=== PATIENT | female | born 1990 | race Caucasian/White ===

== ENCOUNTER 2017-12-12 15:52 | Emergency (ER) | payer SELFPAY ==
[2017-12-12] MEDS ORDERED: Ibuprofen 200 MG TAB ONE (17:09)
--- NOTE | 2017-12-12 17:24 | RAD ---
PA AND LATERAL CHEST X-RAY: 12/12/17 HISTORY: Cough and congestion. FINDINGS: Patchy interstitial and parenchymal changes are present in the left lower lobe suggesting pneumonia. The right lung is clear. Cardiac silhouette and pulmonary vasculature are within normal limits. [place] structures are intact. IMPRESSION: Left lower lobe pneumonia. Followup to complete resolution is recommended. POS: [facility]
== END 2017-12-12 17:59 | disposition home or self-care (01) ==
LOC: ERS 15:52
DX: J18.9 Pneumonia, unspecified organism (principal); F17.210 Nicotine dependence, cigarettes, uncomplicated
CPT/HCPCS: 71046; 94640; J7620

== ENCOUNTER 2019-05-05 13:38 | Outpatient (CLI) | payer OTHER ==
--- NOTE | 2019-05-05 14:45 | ULT ---
PELVIC ULTRASOUND: INDICATIONS: Infertility. TECHNIQUE: Transabdominal ultrasound of the pelvis performed. FINDINGS: The uterus has a normal sonographic appearance. Uterine measurements are recorded at 6.2 x 5.5 x 3.5 cm. The endometrium is upper normal, measuring approximately 1.0 cm. Both ovaries are identified and appear unremarkable. Normal appearing follicles are seen. Color Doppl er and spectral analysis demonstrate normal and symmetric blood flow to both ovaries. No free fluid i s seen. IMPRESSION: The endometrial stripe is upper normal. Pelvic ultrasound is otherwise unremarkable. POS: OFF
== END 2019-05-05 13:39 | disposition home or self-care (01) ==
LOC: BICULT 13:38
PROVIDERS: ATTEND Obstetrics & Gynecology
DX: Z31.41 Encounter for fertility testing (principal); Z31.69 Encounter for other general counseling and advice on procreation
CPT/HCPCS: 76856; 93976

== ENCOUNTER 2019-05-07 08:55 | Outpatient (CLI) | payer OTHER ==
[2019-05-07] MEDS ORDERED: Iopamidol 300 61% 30 ML VIAL ONE (13:01)
--- NOTE | 2019-05-07 13:38 | RAD ---
Hysterosalpingogram HISTORY: Infertility. FINDINGS: After explaining the procedure and answering all questions, the uterine cervix was carefull y exposed and prepped. Careful technique used to place an HSG catheter into the endometrial cavity. Balloon inflated to hold position. [employer] images show phlebolith within the right pelvis. Hemostasis clip over the right lower quadrant. Approximately 10 cc iodinated contrast was carefully instilled into the endometrial cavity. Normal ca pacity and contour. Immediate fill of each fallopian tube and spill bilaterally. Excess contrast was aspirated and catheter removed. Patient tolerated the procedure well and was dismissed in good co ndition. Fluoroscopy time 0.4 minutes. IMPRESSION: Normal HSG. Patent bilateral fallopian tubes.
== END 2019-05-07 08:56 | disposition home or self-care (01) ==
LOC: RAD 08:55
PROVIDERS: ATTEND Student in an Organized Health Care Education/Training Program
DX: Z31.41 Encounter for fertility testing (principal); Z31.69 Encounter for other general counseling and advice on procreation
CPT/HCPCS: 58340; 74740; Q9967

== ENCOUNTER 2022-01-21 18:18 | Emergency (ER) | payer SELFPAY ==
[2022-01-21 21:11] LABS: SARS-CoV-2 NAA Rapid Test Not Detected (NotDetected)
[2022-01-21] MEDS ORDERED: Oxymetazoline HCl 0.05% (30 ML BOT) ONE (21:55)
== END 2022-01-21 21:57 | disposition home or self-care (01) ==
LOC: ERS 18:18
DX: B34.9 Viral infection, unspecified (principal); F17.210 Nicotine dependence, cigarettes, uncomplicated; Z20.822 Contact with and (suspected) exposure to COVID-19
CPT/HCPCS: 71045; J7620

== ENCOUNTER 2023-06-03 06:50 | Emergency (ER) | payer SELFPAY | END 2023-06-03 08:09 | disposition home or self-care (01) | LOC: ERS 06:50 | DX: J06.9 Acute upper respiratory infection, unspecified (principal); F17.210 Nicotine dependence, cigarettes, uncomplicated | CPT/HCPCS: 99283 ==

== ENCOUNTER 2024-04-28 23:06 | Emergency (ER) | payer SELFPAY ==
[2024-04-28] MEDS ORDERED: Ondansetron ODT 4 MG TAB ONE (23:51)
[2024-04-28] MEDS ORDERED: Ketorolac Tromethamine 30 MG (1 mL) VIAL ONE (23:51)
[2024-04-29 00:01] LABS: Bacteria/HPF None Seen HPF (None Seen); Bilirubin Negative (Negative); Blood, Urine Negative (Negative); CAUTI Indications for Culture Alt mental st,lethar; Clarity Clear (Clear); Glucose, Urine (Dipstick) Normal (Negative); Ketone, Urine Trace mg/dL (Negative); Leukocyte Negative Leu/uL (Negative); Nitrite Negative (Negative); Protein, Urine (Dipstick) 10 mg/dL (Neg-Trace); RBC/HPF 0-3 HPF (0-3); Specific Gravity, Urine 1.026 (1.002-1.036); Squamous Epithelial 0-3 HPF (0-3); Urobilinogen Normal mg/dL (Less than 2); WBC/HPF 0-3 HPF (0-3)
[2024-04-29 00:10] LABS: Pregnancy Test - Urine (BHCG) Negative (Negative); Specific Gravity 1.026 (1.002-1.036); Urine Culture Reflex No No
[2024-04-29 00:11] LABS: Pregu Control Background? CLEAR/WHITE (CLR/WHITE); Pregu Control Bar Appear? YES (CONTROL BAR)
[2024-04-29 02:03] LABS: Influenza A by NAA Not Detected (NotDetected); Influenza B by NAA Not Detected (NotDetected); SARS-CoV-2 NAA Rapid Test Not Detected (NotDetected)
== END 2024-04-29 01:45 | disposition home or self-care (01) ==
LOC: ERS 23:06
DX: B34.9 Viral infection, unspecified (principal); F17.210 Nicotine dependence, cigarettes, uncomplicated
CPT/HCPCS: 71046; 81001; 81025; 96372; J1885; Q0162